=== PATIENT | female | born 1985 | race Two or more races ===

== ENCOUNTER 2024-07-19 00:24 | Emergency (ER) | payer OTHER, SELFPAY ==
[2024-07-19 00:34] VITALS: BP 147/72; PULSE 118; RESP 16; TEMP 38.1; O2SAT 98; BMI 34.3
--- NOTE | 2024-07-19 00:54 | CRLHL7_ITS ---
For Patients: As a result of the Cures Act, medical imaging exams and procedure reports are released immediately into your electronic medical record. You may view this report before your referring provider. If you have questions, please contact your health care provider. INDICATION: Fever. TECHNIQUE: Chest 2 views. COMPARISON: None. FINDINGS: Cardiovascular and mediastinum: Heart size and vasculature are normal in caliber and appearance. Lungs and pleural spaces: Lungs are clear. No sign of infiltrate or mass. No sign of pleural effusion. No pneumothorax. Bones and soft tissues: No significant findings. IMPRESSION: No acute cardiopulmonary abnormality. Dictated by Yon Hunt MD @ 07/19/2024 1:36:42 AM (Electronically Signed)
--- NOTE | 2024-07-19 00:56 | ED.GENADULT ---
HPI - General Adult General Chief complaint: Cough Stated complaint: chills,fever Time Seen by Provider: 07/19/24 00:42 Source: patient and family Mode of arrival: ambulatory History of Present Illness HPI narrative: 38-year-old female with a history of insulin-dependent diabetes presents the emergency department for evaluation of fever and chills. Symptoms started 2 days ago, worsening in nature. No cough, no dysuria, no abdominal pain. Does have a little bit of a sore throat and some oral ulcers. No known sick contacts. Did try taking 400 mg of ibuprofen 12 hours ago with temporary improvement of symptoms. Poor appetite. Not really checking her blood sugars strictly. Max fever of 102 at home. Some nausea but no vomiting. No diarrhea. No other skin lesions noted. No pertinent travel. Has not tried any other interventions to help with symptoms. Not immunocompromised, no history of chemotherapy, prior hospitalizations for similar illnesses. Past medical history is notable only for diabetes. Home meds are 12 units b.i.d. of Lantus and 8 units of NovoLog t.i.d. with meals which really would suggest type 1 diabetes but she says she has type 2 though I am not confident that she is correct regarding that. Reports 2 prior C-sections but no other abdominal surgeries. Nonsmoker. ROS is notable for the generalized symptoms as described above only, otherwise denies times 12 systems. Related Data Previous Rx's ?Medication ?Instructions ?Recorded ibuprofen 600 mg tablet 600 mg PO Q8H PRN fever or pain 02/20/24 #30 tabs cephalexin 500 mg capsule 500 mg PO TID 7 days #21 caps 07/19/24 ibuprofen 600 mg tablet 600 mg PO Q6H PRN fever or pain 07/19/24 #60 tabs Allergies Allergy/AdvReac Type Severity Reaction Status Date / Time No Known Drug Allergies Allergy Verified 07/19/24 00:36 [facility] Medical History Influenza ?J11.1 - Influenza due to unidentified influenza virus with other respiratory manifestations (ICD-10) Fever ?R50.9 - Fever, unspecified (ICD-10) Cough ?R05.9 - Cough, unspecified (ICD-10) Exam Const: Vital Signs, click to edit/add: Vital Signs - 24 hr 07/19/24 00:34 Temperature 100.6 F H Pulse Rate [Right Pulse Oximeter] 118 H Respiratory Rate 16 Blood Pressure [Ri ght Upper Arm] 147/72 H Pulse Oximetry 98 Oxygen Delivery Me thod Room Air Documenting provider has reviewed patient's vital signs: yes Common normals: alert General appearance: well kempt Other: Overweight but does not appear acutely ill. Febrile and slightly diaphoretic. Answers questions appropriately. Able to speak in full sentences with no dyspnea HENMT: Common normals: normocephalic and nasal mucous membranes and turbinates normal Head and scalp: normocephalic Face and sinus: normal facial exam Nose: nasal mucous membranes and turbinates normal Other: Moist lips and oral membranes. Reddened tonsillar pillars with no tonsillar enlargement. Slight blistery appearance. Eye: Common normals: conjunctivae normal General eye: normal appearance of both eyes Conjunctiva: conjunctiva(e) normal Neck & C-Spine: Common normals: no lymphadenopathy and supple Resp: Common normals: normal respiratory effort, no use of accessory muscles and clear to auscultation bilaterally Effort & inspection: able to speak in complete sentences Auscultation: clear to auscultation bilaterally Cardio: Common normals: regular rate, regular rhythm, S1 normal heart sound and no murmurs Rate: regular rate Rhythm: regular rhythm Heart sounds: S1 normal GI: Common normals: Normal to inspection, nondistended, normoactive bowel sounds present, soft to palpation, non-tender, no hepatosplenomegaly and no masses Palpation: soft and no hepatosplenomegaly : Common normals: no CVA tenderness Bladder/kidney exam: no CVA tenderness Back & Pelvis: Common normals: no CVA tenderness Extremity: Common normals: normal to inspection, normal capillary refill and no pedal edema Neuro: Sensorium/orientation: alert Speech: speech normal Motor exam: no movement abnormalities noted Psych: Appearance: well kempt Attitude: calm Insight: insight good Judgement: judgment good Skin: Common normals: no rashes or lesions noted General skin exam: no rashes or lesions noted Course Course ED Course: 38-year-old female with tachycardia and fever but no hypotension to suggest sepsis. Differential diagnosis is wide and she does not have any localizing obvious symptoms of infection besides some pharyngeal erythema. Not limited to influenza, COVID, pyelonephritis, pneumonia, gastrointestinal infection, bacteremia, viral process, cellulitis, amongst others. No signs of severe dehydration. Will obtain basic blood work, urinalysis, chest x-ray. Strep and COVID swabs. Bolus 1 L of normal saline and give 1000 mg of Tylenol. Re-evaluate after interventions. Patient does not meet criteria for blood cultures due to the shortage, otherwise these would have been drawn. Reevaluation(s) Time of Reevaluation #1: 02:27 Reevaluation #1: Patient feeling much better after Tylenol and fluids. Rocephin was started about 45 minutes ago and has now completed. Patient has signs of a complicated urinary tract infection and likely has an early pyelonephritis. There is a significant shortage of blood culture vials and I have the ability to get a urine culture on this patient. I am already giving her initial dose of antibiotics IV, this would be sufficient treatment for pyelonephritis. I think it is okay that we do not have a blood culture to go off of an can avoid drying this under the special circumstances. There really isn't any indication for a renal ultrasound or CT to diagnose pyelonephritis. Her creatinine looks great. Counseled patient on strict control of blood sugars, goal 8o-250. She will start Keflex 500 t.i.d.. Pick this up today and start no later than this evening as I do want some overlap between the Rocephin and Keflex. Urine culture will be performed. We will need to call her if there is a necessary change for antibiotics. Patient counseled that fevers are very common with this, she is going to continue to feel pretty terrible for the next 24 hours. Drink lots of fluids. Alarm symptoms reviewed that would warrant ED presentation. Follow-up appointment if not markedly better by Friday. She verbalizes understanding and agreement. Vital Signs Vital signs: Initial Vital Signs Temperature 100.6 F H 07/19/24 00:34 Temperature Source Temporal Artery Scan 07/19/24 00:34 Pulse Rate 118 H 07/19/24 00:34 Pulse Rhythm Regular 07/19/24 00:34 Pulse Strength 3+ Normal 07/19/24 00:34 Respiratory Rate 16 07/19/24 00:34 Blood Pressure 147/72 H 07/19/24 00:34 Blood Pressure Mean 97 07/19/24 00:34 Blood Pressure Position Supine 07/19/24 00:34 Pulse Oximetry 98 07/19/24 00:34 Oxygen Delivery Method Room Air 07/19/24 00:34 Vital Signs Temperature 100.6 F H 07/19/24 00:34 Pulse Rate 118 H 07/19/24 00:34 Respiratory Rate 16 07/19/24 00:34 Blood Pressure 147/72 H 07/19/24 00:34 Pulse Oximetry 98 07/19/24 00:34 Oxygen Delivery Method Room Air 07/19/24 00:34 Temperature 100.6 F H 07/19/24 00:34 Pulse Rate 118 H 07/19/24 00:34 Respiratory Rate 16 07/19/24 00:34 Blood Pressure 147/72 H 07/19/24 00:34 Pulse Oximetry 98 07/19/24 00:34 Oxygen Delivery Method Room Air 07/19/24 00:34 Medications Administered Medications: Generic Name Dose Route Start Last Admin Trade Name Freq PRN Reason Stop Dose Admin Ceftriaxone Sodium 1 gm/ 100 mls @ 200 mls/hr 07/19/24 01:33 07/19/24 02:24 Sodium Chloride IVPB 07/19/24 01:34 Infused ONCE ONE Infusion Discontinued Medications Generic Name Dose Route Start Last Admin Trade Name Freq PRN Reason Stop Dose Admin Acetaminophen 1,000 mg 07/19/24 00:54 07/19/24 01:37 Acetaminophen 500 Mg Tablet PO 07/19/24 00:55 1,000 mg ONCE ONE Administration Sodium Chloride 1,000 mls @ 1,000 mls/hr 07/19/24 00:55 07/19/24 02:23 0.9 % Sodium Chloride 1000 Ml IV 07/19/24 01:54 Infused .Q1H RENETTA Infusion Medical Decision Making Lab Data Lab results reviewed: Yes I reviewed the patient's lab results Lab results narrative: Elevated procalcitonin given more evidence that this is a bacterial infection. CRP markedly elevated were consistent with pyelonephritis than just a simple bladder infection. Viral swabs are reassuring. Creatinine and electrolytes look good. AST and ALT are likely consistent with some fatty liver, not surprising with her diabetes but certainly not high enough to make me suspect hepatitis. Lactate looks good, no hypotension or other evidence of sepsis. Urinalysis with obvious infection. Labs: Lab Results 08/19/24 08/19/24 08/19/24 Range/Units 00:33 01:05 01:12 WBC 9.04 (4.50-11.00) K/uL RBC 3.91 L (4.00-5.20) m/uL Hgb 11.9 L (12.0-16.0) gm/dL Hct 35.5 (33.0-51.0) % MCV 91 (80-100) fL MCH 30 (26-34) pg MCHC 34 (32-36) gm/dL RDW Coeff of Rohit 12.4 (11.5-15.5) % Plt Count 273 (140-440) K/uL Neut % (Auto) 81.8 H (42.0-72.0) % Lymph % (Auto) 13.4 L (20-44) % Sullivan % (Auto) 4.3 (0.0-11.0) % Eos % (Auto) 0.4 (0.0-7.0) % Baso % (Auto) 0.0 (0.0-3.0) % Neut # (Auto) 7.40 H (1.7-7.0) K/uL Lymph # (Auto) 1.20 (0.90-2.90) K/uL Sullivan # (Auto) 0.40 (0.00-0.90) K/UL Eos # (Auto) 0.04 (0.00-0.50) K/uL Baso # (Auto) 0.00 (0.00-0.30) K/uL Abs Immat Gran (auto) 0.01 (0.00-0.30) K/uL Imm/Tot Granulo (auto) 0.1 % Sodium 135 (135-149) mmol/L Potassium 3.8 (3.6-5.1) mmol/L Chloride 106 (96-114) mmol/L Carbon Dioxide 19 L (20-32) mmol/L Anion Gap 10 (7-15) mEq/L BUN 9 (5-24) mg/dL Creatinine 0.6 (0.5-1.5) mg/dL Estimated Creat Clear 153.24 Estimated GFR 117 ml/min Glucose 347 H (60-115) mg/dL Lactate 1.6 (0.5-1.9) mmol/L Calcium 8.5 (8.4-10.6) mg/dL Total Bilirubin 0.5 (0.1-1.5) mg/dL AST 54 H (12-35) U/L ALT 38 H (4-35) U/L Alkaline Phosphatase 209 H (40-150) U/L C-Reactive Protein 25.8 H (0.5-1.0) mg/dL Total Protein 7.0 (6.0-8.3) g/dL Albumin 3.6 (3.3-5.0) g/dL Procalcitonin 0.96 H (<0.50) ng/mL Urine Color (Yellow) Urine Appearance (Clear) Urine pH (5.0-8.5) Ur Specific [place] (1.000-1.030) Urine Protein (Negative) Urine Glucose (UA) (Negative) Urine Ketones (Negative) Urine Blood (Negative) Urine Nitrite (Negative) Urine Bilirubin (Negative) Urine Urobilinogen (0.2-1.0) Ur Leukocyte Esterase (Negative) Urine RBC (0-2) Urine WBC (0-5) Ur Squamous Epith Cells (None-Few) Urine Bacteria (None) SARS-CoV-2 (PCR) Negative SARS-CoV-2 (Negative) Influenza Type A (PCR) Negative PCR FLU A (Negative) Influenza Type B (PCR) Negative PCR FLU B (Negative) RSV (PCR) Negative PCR RSV (Negative) Group A Strep DNA NOT DETECTED (Not Detectd) 07/19/24 Range/Units 01:15 WBC (4.50-11.00) K/uL RBC (4.00-5.20) m/uL Hgb (12.0-16.0) gm/dL Hct (33.0-51.0) % MCV (80-100) fL MCH (26-34) pg MCHC (32-36) gm/dL RDW Coeff of Rohit (11.5-15.5) % Plt Count (140-440) K/uL Neut % (Auto) (42.0-72.0) % Lymph % (Auto) (20-44) % Sullivan % (Auto) (0.0-11.0) % Eos % (Auto) (0.0-7.0) % Baso % (Auto) (0.0-3.0) % Neut # (Auto) (1.7-7.0) K/uL Lymph # (Auto) (0.90-2.90) K/uL Sullivan # (Auto) (0.00-0.90) K/UL Eos # (Auto) (0.00-0.50) K/uL Baso # (Auto) (0.00-0.30) K/uL Abs Immat Gran (auto) (0.00-0.30) K/uL Imm/Tot Granulo (auto) % Sodium (135-149) mmol/L Potassium (3.6-5.1) mmol/L Chloride (96-114) mmol/L Carbon Dioxide (20-32) mmol/L Anion Gap (7-15) mEq/L BUN (5-24) mg/dL Creatinine (0.5-1.5) mg/dL Estimated Creat Clear Estimated GFR ml/min Glucose (60-115) mg/dL Lactate (0.5-1.9) mmol/L Calcium (8.4-10.6) mg/dL Total Bilirubin (0.1-1.5) mg/dL AST (12-35) U/L ALT (4-35) U/L Alkaline Phosphatase (40-150) U/L C-Reactive Protein (0.5-1.0) mg/dL Total Protein (6.0-8.3) g/dL Albumin (3.3-5.0) g/dL Procalcitonin (<0.50) ng/mL Urine Color Yellow (Yellow) Urine Appearance Cloudy A (Clear) Urine pH 5.5 (5.0-8.5) Ur Specific [place] 1.010 (1.000-1.030) Urine Protein 2+ A (Negative) Urine Glucose (UA) 3+ A (Negative) Urine Ketones Negative (Negative) Urine Blood 1+ A (Negative) Urine Nitrite Positive A (Negative) Urine Bilirubin Negative (Negative) Urine Urobilinogen 0.2 (0.2-1.0) Ur Leukocyte Esterase 1+ A (Negative) Urine RBC 0-2 (0-2) Urine WBC 10-25 A (0-5) Ur Squamous Epith Cells Few (None-Few) Urine Bacteria Moderate A (None) SARS-CoV-2 (PCR) (Negative) Influenza Type A (PCR) (Negative) Influenza Type B (PCR) (Negative) RSV (PCR) (Negative) Group A Strep DNA (Not Detectd) Imaging Data Chest x-ray: Attestation: I have reviewed the pertinent imaging results. My impression: Possibly some mild early cardiomegaly but otherwise no evidence of infiltrates, effusions or acute cardiac process. Radiologist's impression: IMPRESSION: No acute cardiopulmonary abnormality. Dictated by Yon Hunt MD @ 07/19/2024 1:36:42 AM Discharge Plan Discharge Clinical Impression: Complicated UTI (urinary tract infection) Patient Disposition: Home w/ Parent or Adult Condition: Improved Instructions: Kidney Infection (ED) Additional Instructions: As we discussed, there is strong evidence of a fairly impressive urinary tract infection and I do suspect that it is starting to track up into the kidneys. There were no signs of sepsis or severe blood infection today. Your strep, COVID and flu swabs are negative and your chest x-ray looked good. We have started you on an antibiotic, Rocephin for this. This will last your blood stream for about 24 hours. But you will need to continue on antibiotics by mouth 3 times a day for the next week. Please pick these up today at your local pharmacy and make sure you start taking them by evening tonight. We will call you if the urine culture tells us that we need to switch antibiotics, this result typically takes a couple of days. I recommend that you take ibuprofen 600 mg every 6 hours to help with fever and body aches. I will send a prescription for this per your request. I do recommend that you take today off to heal and recover but plan to return to work on Friday. You should be feeling much better by mid day on Friday. If you have not started to improve by Friday, please schedule follow-up appointment with her primary care provider. It is common to still have some fevers and sweats for a few days. Drink lots of fluids but also make sure that you are keeping your blood sugars in check. You cannot heal this infection unless your blood sugars are below 250. Check your blood sugars frequently and adjust your insulin just a few points as needed to help keep your blood sugars between 80-250. Addy comentamos, hay pruebas s?lidas de cody infecci?n del tracto urinario bastante impresionante y sospecho que est? empezando a llegar a los ri?ones. Hoy no hubo signos de sepsis ni de infecci?n grave en la kiran. Los hisopos para estreptococos, COVID y gripe son negativos y la radiograf?a de t?rax se ve?a ginny. Hemos empezado a darle un antibi?michaela, Rocephin, para esto. [facility] le durar? en el torrente sangu?angelica unas 24 horas. Faye tendr? que seguir tomando antibi?ticos por v?a oral 3 veces al d?a luis la pr?xima semana. Rec?jalos hoy en gibbs farmacia local y aseg?rese de empezar a tomarlos esta noche. Le llamaremos si el cultivo de orina nos indica que tenemos que cambiar de antibi?michaela; maricel resultado suele tardar un par de d?as. Le recomiendo que tome ibuprofeno de 600 mg cada 6 horas para aliviar la fiebre y los svitlana corporales. Le enviar? cody receta para esto seg?n gibbs solicitud. Le recomiendo que se tome el d?a brannon para curarse y recuperarse, faye que planee volver a trabajar el cristina. Deber?a sentirse mucho mejor al mediod?a del cristina. Si no metzger comenzado a mejorar para el mi?rcoles, programe cody jacinda de seguimiento con gibbs m?dico de cabecera. Es com?n que todav?a tenga fiebre y sudores luis algunos d?as. Charu muchos l?quidos, faye tambi?n aseg?rese de mantener bajo control jon niveles de az?car en kiran. No puede curar esta infecci?n a menos que jon niveles de az?car en kiran est?n por debajo de 250. Controle jon niveles de az?car en kiran con frecuencia y ajuste gibbs insulina solo unos pocos puntos seg?n sea necesario para ayudar a mantener jon niveles de az?car en kiran entre 80 y 250. Activity Level: Activity as Tolerated Discharge Diet: Diabetic Prescriptions: New ibuprofen 600 mg tablet 600 mg PO Q6H PRN (Reason: fever or pain) Qty: 60 0RF cephalexin 500 mg capsule 500 mg PO TID 7 Days Qty: 21 0RF No Action ibuprofen 600 mg tablet 600 mg PO Q8H PRN (Reason: fever or pain) Qty: 30 0RF Follow Up/Referrals: Provider,Not a Local [Primary Care Provider] - Stand Alone Forms: MyHealth Info Instructions
[2024-07-19 01:19] LABS: PCR FLU A Negative PCR FLU A (Negative); PCR FLU B Negative PCR FLU B (Negative); PCR RSV Negative PCR RSV (Negative); SARS PCR* Negative SARS-CoV-2 (Negative)
[2024-07-19 01:20] LABS: Lactate* 1.6 mmol/L (0.5-1.9)
[2024-07-19 01:24] LABS: Appearance Urine Cloudy (Clear); Bilirubin Urine Negative (Negative); Blood Urine 1+ (Negative); Color Urine Yellow (Yellow); Glucose Urine 3+ (Negative); Ketones Urine Negative (Negative); Leukocyte Esterase Urine 1+ (Negative); Nitrite Urine Positive (Negative); Protein Urine 2+ (Negative); Urobilinogen Urine 0.2 (0.2-1.0); pH Urine 5.5 (5.0-8.5)
[2024-07-19 01:25] LABS: Eosinophils Absolute Auto 0.04 K/uL (0.00-0.50); Eosinophils Percent Auto 0.4 % (0.0-7.0); Hematocrit 35.5 % (33.0-51.0); Hemoglobin* 11.9 gm/dL (12.0-16.0); Immature Granulocytes Abs Auto 0.01 K/uL (0.00-0.30); Immature Granulocytes Pct Auto 0.1 %; Lymphocytes Percent Auto 13.4 % (20-44); Mean Corpuscular HGB Conc 34 gm/dL (32-36); Mean Corpuscular Hemoglobin 30 pg (26-34); Mean Corpuscular Volume 91 fL (80-100); Monocytes Percent Auto 4.3 % (0.0-11.0); Neutrophils Percent Auto 81.8 % (42.0-72.0); Platelet Count* 273 K/uL (140-440); RDW Coefficient of Variation % 12.4 % (11.5-15.5); Red Blood Count 3.91 m/uL (4.00-5.20); White Blood Count* 9.04 K/uL (4.50-11.00)
[2024-07-19 01:27] LABS: Slide Review Reflex No
[2024-07-19 01:32] LABS: Strep A DNA Probe* NOT DETECTED (Not Detectd)
[2024-07-19 01:37] LABS: Bacteria Urine Moderate; RBC Urine 0-2 (0-2); Squamous Epithelial Cell Urine Few (None-Few)
[2024-07-19] MEDS: ACETAMINOPHEN 500 MG TABLET 1000 MG PO (01:37)
[2024-07-19] MEDS: 0.9 % SODIUM CHLORIDE 1000 ml 1,000 ML IV (01:37)
[2024-07-19] MEDS: cefTRIAXone 1 GM in 0.9 % SODIUM CHLORIDE Mini-bag 100 ML IVPB (01:38)
[2024-07-19 02:02] LABS: C Reactive Protein* 25.8 mg/dL (0.5-1.0)
[2024-07-19 02:09] LABS: Anion Gap 10 mEq/L (7-15); Blood Urea Nitrogen* 9 mg/dL (5-24); Calcium* 8.5 mg/dL (8.4-10.6); Carbon Dioxide* 19 mmol/L (20-32); Chloride* 106 mmol/L (96-114); Creatinine* 0.6 mg/dL (0.5-1.5); Est. Creatinine Clearance* 153.24; Estimated Glomerular Filt Rate 117 ml/min; Potassium* 3.8 mmol/L (3.6-5.1); Sodium* 135 mmol/L (135-149)
[2024-07-19 02:10] LABS: Alanine Aminotransferase* 38 U/L (4-35); Albumin* 3.6 g/dL (3.3-5.0); Alkaline Phosphatase* 209 U/L (40-150); Aspartate Amino Transferase* 54 U/L (12-35); Bilirubin Total* 0.5 mg/dL (0.1-1.5); Glucose* 347 mg/dL (60-115); Procalcitonin* 0.96 ng/mL (<0.50)
== END 2024-07-19 02:39 | disposition home or self-care (01) ==
PROVIDERS: Emergency Provider Family Medicine
DX: N39.0 Urinary tract infection, site not specified (principal)
CPT/HCPCS: 36415; 71046; 80053; 81001; 81003; 83605; 84145; 85025; 86140; 87086; 87186; 87631; 87651; 96365; 99284; A9270; J0696; J7030

== ENCOUNTER 2025-04-29 09:49 | Outpatient (CLI) | payer OTHER, SELFPAY | END 2025-04-29 09:50 | disposition home or self-care (01) | PROVIDERS: Visit Provider Family Medicine | DX: Z00.00 Encounter for general adult medical examination without abnormal findings (principal); E11.65 Type 2 diabetes mellitus with hyperglycemia; Z79.4 Long term (current) use of insulin | CPT/HCPCS: 80053; 80061; 84443; 84681; T1013 ==

== ENCOUNTER 2025-08-11 10:05 | Outpatient (CLI) | payer OTHER, SELFPAY ==
--- NOTE | 2025-08-11 10:15 | CRLHL7_ITS ---
For Patients: As a result of the Century Cures Act, medical imaging exams and procedure reports are released immediately into your electronic medical record. You may view this report before your referring provider. If you have questions, please contact your health care provider. INDICATION: BILATERAL SCREENING MAMMOGRAM, ASYMPTOMATIC 39 Y/O FEMALE COMPARISON: BASELINE TECHNIQUE: Digital mammogram in CC and MLO projections including computer-aided detection (CAD) and tomosynthesis. BREAST COMPOSITION: The breasts are extremely dense, which lowers the sensitivity of mammography. FINDINGS: No suspicious findings. ASSESSMENT: BI-RADS 1 Negative RECOMMENDATION: Annual screening mammogram. A lay language report of this examination will be provided to the patient. Dictated by: Cameron Owens MD @ 08/11/2025 13:28:41 (Electronically Signed)
== END 2025-08-11 10:06 | disposition home or self-care (01) ==
LOC: MAMMO 10:07
PROVIDERS: PCP Family Medicine; Visit Provider Family Medicine
DX: Z12.31 Encounter for screening mammogram for malignant neoplasm of breast (principal); R92.343 Mammographic extreme density, bilateral breasts
CPT/HCPCS: 77063; 77067; T1013